=== PATIENT | male | born 1955 | race Caucasian/White ===

== ENCOUNTER → 2018-09-16 | Outpatient (CLI) | payer OTHER | LOC: ULTRA 10:07 | DX: N40.0 Benign prostatic hyperplasia without lower urinary tract symptoms (principal); R31.29 Other microscopic hematuria; Z85.528 Personal history of other malignant neoplasm of kidney; Z90.5 Acquired absence of kidney ==

== ENCOUNTER → 2020-07-21 | Outpatient (CLI) | payer OTHER | LOC: ULTRA 09:03 | PROVIDERS: ATTEND Urology | DX: R31.0 Gross hematuria (principal); Z85.528 Personal history of other malignant neoplasm of kidney ==